=== PATIENT | female | born 1985 | race Caucasian/White ===

== ENCOUNTER 2021-04-07 17:57 | Emergency (ER) | payer BC ==
[~2021-04-07] VITALS: Ht 157.5 cm; Wt 61.2 kg
--- NOTE | 2021-04-07 17:58 | NUR ---
TRIAGED AND BROUGHT INTO BED #8, REPORT GIVEN TO DAVID
--- NOTE | 2021-04-07 18:05 | NUR ---
Patient to ER bed 08 to gown for evaluation. Side rails up.
[2021-04-07 18:09] VITALS: BP_SYST 100
--- NOTE | 2021-04-07 18:10 | NUR ---
Pt brought by self,A&Ox4, pt presents to ER with weakness, vaginal bleeding and fever since today, pt states she had chilo and [place]ilo vaccine last wednesday, pt skin pink and warm, cap refill <3, VSS, respirations even and unlabored.
--- NOTE | 2021-04-07 18:14 | NUR ---
Dr Tapia evaluating patient at bedside
[2021-04-07 18:34] LABS: BILIRUBIN,URINE NEGATIVE (NEGATIVE); BLOOD, URINE 3+ (NEGATIVE); COLOR,URINE YELLOW (YELLOW); GLUCOSE,URINE NEGATIVE (NEGATIVE); KETONES,URINE NEGATIVE (NEGATIVE); LEUKOCYTE ESTERASE ,URINE NEGATIVE (NEGATIVE); NITRITE, URINE NEGATIVE (NEGATIVE); PROTEIN URINE NEGATIVE (NEGATIVE); UROBILINOGEN,URINE 0.2 (0.2-1.0)
[2021-04-07 18:40] LABS: CLARITY/URINE SLIGHTLY HAZY (CLEAR)
[2021-04-07 18:45] LABS: RBC,URINE 20-50 /HPF (0-3); WBC,URINE 0-3 /HPF (0-3)
[2021-04-07 18:46] LABS: BACTERIA,URINE RARE /HPF (None Seen); MUCUS,URINE None Seen /LPF (None Seen)
--- NOTE | 2021-04-07 18:55 | NUR ---
Pt A&Ox4, resting in bed, afebrile , will cont to monitor.
--- NOTE | 2021-04-07 18:57 | NUR ---
Report given to November RN
--- NOTE | 2021-04-07 19:38 | NUR ---
Patient came back from Ultrasound room.
--- NOTE | 2021-04-07 19:49 | NUR ---
Blood for labwork drawn from nursery technician. Patient tolerated well.
[2021-04-07 19:59] LABS: HEMATOCRIT 38.3 % (36-48); HEMOGLOBIN 13.1 g/dL (12.0-16.0); MEAN CORPUSCULAR HEMOGLOBIN 32 pg (27-31); MEAN CORPUSCULAR HGB CONC 34 % (32-36); MEAN CORPUSCULAR VOLUME 93 fL (79.0-98.0); PLATELET COUNT (AUTO) 171 K/uL (130-430); RED BLOOD CELL COUNT(AUTO) 4.13 MIL/uL (4.2-6.2); RED CELL DISTRIBUTION WIDTH 12.4 % (9.0-15.0); WHITE BLOOD COUNT (AUTO) 2.5 K/uL (4.8-10.8)
[2021-04-07 20:09] LABS: CALCIUM 8.5 mg/dL (8.4-11.0); CREATININE 0.76 mg/dL (0.55-1.30); POTASSIUM 3.9 mmol/L (3.5-5.1)
[2021-04-07 20:15] LABS: ALBUMIN 3.8 g/dL (3.4-4.8); TOTAL BILIRUBIN 0.3 mg/dL (0.0-1.0)
[2021-04-07 20:32] LABS: ATYPICAL LYMPHOCYTES % 8 % (0-0); BAND % (MANUAL) 6 % (0-6); BASOPHILS % (MANUAL) 0 % (0-2); EOSINOPHILS % (MANUAL) 1 % (0-7); LYMPHOCYTES % (MANUAL) 38 % (20-46); MONOCYTES % (MANUAL) 10 % (0-11)
[2021-04-07] MEDS ORDERED: MEDR10TA3 PO (20:52)
[2021-04-07 20:56] VITALS: BP_SYST 100
--- NOTE | 2021-04-07 20:56 | NUR ---
Patient given written and verbal discharge instructions and verbalizes understanding by Dr. Tapia. ER MD discussed with patient the results and treatment provided. Patient in stable condition. ID arm band removed. Rx of Provera given. Patient educated on pain management and to follow up with PMD. Pain Scale 1/10. Opportunity for questions provided and answered. Medication side effect fact sheet provided.
== END 2021-04-07 20:56 | disposition home or self-care (01) ==
LOC: SED 17:57
DX: N93.8 Other specified abnormal uterine and vaginal bleeding (principal); D64.9 Anemia, unspecified; Z79.899 Other long term (current) drug therapy
CPT/HCPCS: 36415; 76830-TC; 76857; 80053; 81000; 81025; 85007; 85027; 99284